=== PATIENT | male | born 1985 | race Two or more races ===

== ENCOUNTER 2017-08-27 19:06 | Emergency (ER) | payer BC ==
[2017-08-27 19:16] VITALS: BP 119/79; PULSE 72; TEMP 98; BMI 29.7
--- NOTE | 2017-08-27 19:16 | PDOC ---
History of Present Illness - General History Source: Patient Exam Limitations: No Limitations - History of Present Illness Initial Comments: 08/27/17 19:28 The patient is a 31 year old male, with no significant past medical history, who presents to the emergency department with left neck and shoulder pain for approximately 2 days. The patient reports sudden onset of left neck pain radiating into his left shoulder 2 days ago. He reports his pain is constant. He reports occasional heavy lifting and working out, but not anytime recently. He denies any associated chest pain, shortness of breath, diaphoresis, or palpitations. He denies any fever, chills, cough, headache, or dizziness. Patient reports he has not taken anything for the pain, and states it is the worst it's been today. He denies any recent illness or trauma. He denies any recent travel or sick contacts. PAST MEDICAL HISTORY: No significant history PAST SURGICAL HISTORY: No significant history FAMILY HISTORY: No pertinent history SOCIAL HISTORY: Pt lives with family and is employed. Social ETOH use. Non smoker. No recreational drug use. MEDICATIONS: Reviewed ALLERGIES: As per nursing notes General: No fevers or chills, no weakness, no weight loss HEENT: No change in vision. No sore throat,. No ear pain CardioVascular: No chest pain or shortness of breath Respiratory: No cough, or wheezing. Gastrointestinal: No nausea, vomiting, diarrhea or constipation, No rectal bleeding Genitourinary: No dysuria, hematuria, or frequency Musculoskeletal: Yes left neck and left shoulder pain. No other joint or muscle pain or swelling Neurologic: No headache, vertigo, dizziness or loss of consciousness Psychiatric: No depression Skin: No rashes or easy bruising Endocrine: No increased thirst or abnormal weight change Allergic: No skin or latex allergy All other systems reviewed and normal GENERAL: The patient is awake, alert, and fully oriented, in no acute distress. HEAD: Normal with no signs of trauma. EYES: Pupils equal, round and reactive to light, extraocular movements intact, sclera anicteric, conjunctiva clear. EXTREMITIES: Tenderness and spasm on palpation of the left lateral neck and upper shoulder muscles. Otherwise normal range of motion, no edema. NEUROLOGICAL: Normal speech, normal gait. PSYCH: Normal mood, normal affect. SKIN: Warm, Dry, normal turgor, no rashes or lesions noted. <Correa,Giomilsy - Last Filed: 08/27/17 19:28> - General History Source: Patient Exam Limitations: No Limitations - History of Present Illness Initial Comments: 08/27/17 21:34 A portion of this note was documented by scribe services under my direction. I have reviewed the details of the note, within reason, and agree with the documentation. The case summary and management plan written by me. Assessment and plan: This is a 31-year-old male who has neck pain and spasm most likely secondary to his work or lifting something heavy. Patient was given Toradol and Flexeril with improvement in his symptoms. Patient discharged home will follow-up with his primary care doctor as needed. <Maddie Hernandes I - Last Filed: 08/27/17 21:35> - General Chief Complaint: Pain, Acute Stated Complaint: PAIN TO NECK AND LEFT SIDE OF SHOULDER Time Seen by Provider: 08/27/17 19:14 Past History <Gentry Correa - Last Filed: 08/27/17 19:28> - Suicide/Smoking/Psychosocial Hx Smoking Status: No Smoking History: Never smoked Number of Cigarettes Smoked Daily: 0 Hx Alcohol Use: Yes (SOCIAL) Substance Use Type: None <Maddie Hernandes I - Last Filed: 08/27/17 21:35> - Past Medical History Allergies/Adverse Reactions: Allergies Allergy/AdvReac Type Severity Reaction Status Date / Time No Known Allergies Allergy Verified 08/27/17 19:09 Home Medications: Ambulatory Orders Cyclobenzaprine HCl [Flexeril 10 mg] 10 mg PO HS #10 tablet 08/27/17 Naproxen [Naprosyn -] 500 mg PO BID #14 tablet 08/27/17 *Physical Exam - Vital Signs Last Vital Signs Temp Pulse Resp BP Pulse Ox 98 F 72 16 119/79 99 08/27/17 19:11 08/27/17 19:11 08/27/17 19:11 08/27/17 19:11 08/27/17 19:11 <Gentry Correa - Last Filed: 08/27/17 19:28> *DC/Admit/Observation/Transfer - Attestations Scribe Attestion: 08/27/17 19:29 Documentation prepared by Gentry Correa, acting as medical supply technician for Maddie Hernandes MD. <Gentry Correa - Last Filed: 08/27/17 19:28> - Discharge Dispostion Admit: No <Maddie Hernandes I - Last Filed: 08/27/17 21:35> Diagnosis at time of Disposition: Cervical radicular pain - Discharge Dispostion Disposition: HOME Condition at time of disposition: Stable - Prescriptions Prescriptions: Cyclobenzaprine HCl [Flexeril 10 mg] 10 mg PO HS #10 tablet Naproxen [Naprosyn -] 500 mg PO BID #14 tablet
[2017-08-27] MEDS ORDERED: KETOROLAC TROMETHAMINE 60 MG/2 ML VIAL ONE (19:20)
[2017-08-27] MEDS ORDERED: CYCLOBENZAPRINE HCL 10 MG TABLET (FP) ONE (19:20)
[2017-08-27] MEDS ORDERED: KETOROLAC TROMETHAMINE 60 MG/2 ML VIAL IM ONE (19:28)
[2017-08-27] MEDS ORDERED: CYCLOBENZAPRINE HCL 10 MG TABLET (FP) PO ONE (19:28)
== END 2017-08-27 19:35 | disposition home or self-care (01) ==
LOC: FER 19:06
PROC: 3E0233Z Introduction of Anti-inflammatory into Muscle, Percutaneous Approach (ICD-10-PCS; principal; 2017-08-27)
DX: M54.12 Radiculopathy, cervical region (principal)
CPT/HCPCS: 99281-25